=== PATIENT | male | born 1940 | race American Indian/Alaskan Native ===

== ENCOUNTER 2022-06-07 15:44 | Emergency (ER) | payer OTHER, MEDICARE ==
[2022-06-07 15:58] VITALS: BP 125/44
[2022-06-07] MEDS ORDERED: MORPHINE 4 MG/1 ML INJ IM ONE (16:41)
[2022-06-07] MEDS ORDERED: ONDANSETRON 4 MG ODT TAB PO ONE (16:41)
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
[2022-06-07] MEDS ORDERED: oxyCODONE /ACETAMINOPHEN 5-325MG TAB PO ONE (18:58)
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
== END 2022-06-07 21:27 | disposition home or self-care (01) ==
LOC: ED 15:44
DX: R07.89 Other chest pain (principal); M54.9 Dorsalgia, unspecified; R10.9 Unspecified abdominal pain; V89.2XXA Person injured in unspecified motor-vehicle accident, traffic, initial encounter; Y93.89 Activity, other specified; Y92.89 Other specified places as the place of occurrence of the external cause; Y99.8 Other external cause status; E11.9 Type 2 diabetes mellitus without complications; I10 Essential (primary) hypertension
CPT/HCPCS: 70450; 71250; 72128; 74176; 96372; 99284; J2270; J3490; Q0162